=== PATIENT | female | born 1965 | race Caucasian/White ===

== ENCOUNTER 2018-08-19 21:59 | Inpatient (IN) ==
[2018-08-19] MEDS ORDERED: DUONEB (A & A) INH ONE (22:08)
[2018-08-19] MEDS ORDERED: PREDNISONE PO ONE (22:08)
[2018-08-19 22:19] LABS: BASO# 0.03 X1000 (0.0-0.2); BASO% 0.4 % (0.0-0.8); EOS# 0.19 X1000 (0.0-0.7); EOS% 2.2 % (0.0-10.0); HEMATOCRIT 38.2 % (37.0-47.0); HEMOGLOBIN 13.5 g/dL (12.0-16.0); IMM GRAN# 0.01 X1000 (0.0-0.04); IMM GRAN% 0.1 % (0.0-0.5); LYMPH# 3.87 X1000 (1.2-3.4); LYMPH% 45.4 % (20.5-51.1); MCH 28.4 PG (27-31); MCHC 35.3 g/dL (33-37); MCV 80.4 FL (81-99); MONO# 0.74 X1000 (0.11-0.59); MONO% 8.7 % (1.7-9.3); MPV 9.3 FL (7.4-10.4); NEUT# 3.68 X1000 (1.4-6.5); NEUT% 43.2 % (42.2-75.2); PLT 280 X1000 (130-400); RBC 4.75 XMIL (4.2-5.4); RDW 12.6 % (11.5-14.5); WBC 8.52 X1000 (4.8-10.8)
[2018-08-19 22:41] LABS: AGAP 16; BUN 10 mg/dL (8-22); CHLORIDE 98 mmol/L (98-107); COSMO 275; CREATININE 0.8 mg/dL (0.5-0.9); ESTIMATED GFR > 60; GLUCOSE 111 mg/dL (70-104); POTASSIUM 3.3 mmol/L (3.5-5.1); SODIUM 138 mmol/L (136-145); TCO2 24 mmol/L (25-35)
[2018-08-19] MEDS ORDERED: ALBUTEROL NEB INH ONE (23:02)
[2018-08-19] MEDS ORDERED: NITROGLYCERIN TOP ONE (23:05)
[2018-08-19] MEDS ORDERED: MORPHINE IV ONE (23:05)
[2018-08-19] MEDS ORDERED: MORPHINE IV PRN (23:41)
[2018-08-19] MEDS ORDERED: ZOFRAN IV PRN (23:41)
--- NOTE | 2018-08-19 23:41 | PROVIDER DOCUMENTATION ---
This chart was entered by Rebecca Barnard Scribe, acting as scribe for China Zendejas MD. HPI-Chest Pain - General Chief Complaint: Chest Pain Stated Complaint: CHEST PAIN AND SOB Time Seen by Provider: 08/19/18 22:05 Source: patient Allergies/Adverse Reactions: Patient Allergies Allergy/AdvReac Type Severity Reaction Status Date / Time aspirin Allergy Severe FACIAL Verified 07/06/18 16:11 [From Aspirin Regimen SWELLING Phil/Calcium] adhesive Allergy Mild RASH Verified 07/06/18 16:11 latex Allergy Mild RASH Verified 07/06/18 16:11 Penicillins Allergy Mild RASH Verified 07/06/18 16:11 sertraline HCl * Allergy Mild SWELLING Verified 07/06/18 16:11 [From Zoloft] bee venom protein (honey bee) Allergy SWELLING Verified 07/06/18 16:11 tomato Allergy HIVES Verified 07/06/18 16:11 haloperidol [From Haldol] AdvReac Unknown Verified 07/06/18 16:11 tramadol AdvReac Unknown Verified 07/06/18 16:11 Home Medications: Home Medication List Medication Instructions Recorded Confirmed Last Taken Type Lisinopril 20 mg PO DAILY 12/27/17 07/06/18 05/27/18 09:00 History 10mg Pantoprazole [Protonix] 40 mg PO DAILY@0700 05/27/18 07/06/18 05/27/18 07:00 History Duloxetine [Cymbalta] 1 tab PO DAILY 30 Days #30 cap 06/01/18 07/06/18 Unknown Rx Paliperidone [Paliperidone ER] 6 mg PO HS 30 Days #30 tab.er.24 06/01/18 07/06/18 Unknown Rx Trazodone [Desyrel] 100 mg PO HS 30 Days #30 tab 06/01/18 07/06/18 Unknown Rx Docusate Sodium [Colace] 100 mg PO DAILY #30 cap 07/06/18 Unknown Rx Fluticasone Propionate 2 puff INTRANASAL DAILY 07/06/18 07/06/18 Unknown History Magnesium Citrate [Citrate of 300 ml PO ONCE #1 bottle 07/06/18 Unknown Rx Magnesia] Naproxen 1 tab PO DAILY 07/06/18 07/06/18 Unknown History Loperamide [Imodium] 2 mg PO PRN PRN #20 cap MDD 6 07/26/18 Unknown Rx capsules Ondansetron Odt [Zofran 4 mg Odt] 4 mg PO Q6H PRN PRN #15 tab 07/26/18 Unknown Rx - History of Present Illness-CP Nature of Presenting Problem: 53 yof c/o pt 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 pt given 0.8 nitro w/no relief. pt sts she was walking around at [employer] and outdoors when sym started. pt sts walking more than usual tonight. pt has hx of htn, hyperglycemia and copd. pt is out of copd rx for 3 months. Review of Systems - Adult - REVIEW OF SYSTEMS - ADULT Constitutional: reports: no symptoms reported Eyes: reports: no symptoms reported Ears, Nose, Mouth & Throat: reports: no symptoms reported Cardiovascular: reports: see HPI, chest pain. denies: heart murmur, poor circulation, syncope Respiratory: reports: see HPI, shortness of breath. denies: cough, hemoptysis, pleurisy Gastrointestinal: reports: no symptoms reported Genitourinary: reports: no symptoms reported Musculoskeletal: reports: no symptoms reported Integumentary: reports: no symptoms reported Neurological: reports: no symptoms reported Psychiatric: reports: no symptoms reported Endocrine: reports: no symptoms reported Hematologic/Lymphatic: reports: no symptoms reported Allergic/Immunologic: reports: no symptoms reported All Other Systems: Reviewed and Negative Past History - Adult - PAST MEDICAL HISTORY-ADULT Review of Records: reports: Old Records Reviewed, Nursing Assessment Review, Medications Reviewed, Social history reviewed & non-contributory. Major Childhood Illnesses: reports: denies history Cardiovascular: reports: CHF, HTN, hyperlipidemia Respiratory: reports: asthma, COPD Gastrointestinal: reports: GERD Obstetrical/Gynecological: reports: uterine/ovarian cancer Genitourinary: reports: denies history Musculoskeletal: reports: intervertebral disc disease Neurological: reports: denies history Psychiatric: reports: bipolar, depression, psychiatric problems, schizophrenia Endocrine/Immune: reports: Diabetes Other Conditions: reports: denies history - PRIOR SURGERIES/PROCEDURES Surgical/Procedure History: reports: appendectomy, colonoscopy, hysterectomy, BTL, , bowel surgery, orthopedic (extremity), other - PRIOR HOSPITALIZATIONS Prior Hospitalizations: reports: none - IMMUNIZATION STATUS Childhood Immunizations: See Nurse Assessment Flu Vaccine: See Nurse Assessment - FAMILY HISTORY Family History: reviewed, not pertinent - SOCIAL HISTORY Smoking: cigarettes, chew, greater than 1 pack/day Provider spent 3-5 mins advising pt. on dangers of tobacco.: Discussed manners to quit use, and f/u contacts for add'l counseling. Substance Use: none/never Physical Exam-General - PHYSICAL EXAM-ADULT Initial Vital Signs Reviewed: Yes - CONSTITUTIONAL General Appearance: alert, moderate distress. negative: cachetic, obtunded, combative - EYES Eyes: PERRL/EOMI, pink conjunctivae - HEAD, EARS, NOSE, MOUTH & THROAT HENMT: normocephalic/atraumatic, moist mucous membranes, normal ENT inspection - NECK Neck: non-tender, full range of motion, supple, normal inspection - RESPIRATORY Respiratory: chest non-tender, normal breath sounds, no pleuratic chest pain, no respiratory distress, no accessory muscle use, wheezing (bilat). negative: lungs clear, crackles, rales - CARDIOVASCULAR Cardiovascular: normal peripheral pulses, regular rate, rhythm, no edema, no JVD - GASTROINTESTINAL (ABDOMEN) Abdominal Exam: normal bowel sounds, non tender, soft - LYMPHATIC Lymphatic: no adenopathy - MUSCULOSKELETAL Back Exam: normal inspection, no CVA tenderness, no vertebral tenderness Extremity: normal range of motion, non-tender, normal inspection Peripheral Pulses: radial (R): 2+, radial (L): 2+ - SKIN Integumentary: normal color, normal turgor, warm/dry - NEUROLOGIC Neurologic: grossly normal, no motor/sensory deficits - PSYCHIATRIC Psych/Mental Status: normal mood/affect, normal thought content, normal thought process, oriented x 3 - HEART Score HEART Score: History: Moderately Suspicious HEART Score: ECG: Non-Specific Repolarization Disturbance/LBBB/PM HEART Score: Age: 45-65 Years HEART Score: Risk Factors for Atherosclerotic Disease: 1 or 2 Risk Factors HEART Score: Troponin: < or = Normal Limit Total HEART Score:: 4 Progress - PLAN OF CARE/RESULTS Progress/Plan/Lab Results: Vital Signs - 8 hr 08/19/18 22:01 08/19/18 22:10 08/19/18 22:17 Temperature 98.3 F Pulse Rate 88 88 Respiratory Rate 24 24 Blood Pressure 116/54 O2 Sat by Pulse Oximetry 85 L 92 L 08/19/18 23:08 08/19/18 23:14 Temperature Pulse Rate 60 60 Respiratory Rate 14 14 Blood Pressure 122/57 O2 Sat by Pulse Oximetry 95 Laboratory Results - last 24 hr 08/19/18 08/19/18 08/19/18 22:11 22:11 22:11 WBC 8.52 RBC 4.75 Hgb 13.5 Hct 38.2 MCV 80.4 L MCH 28.4 MCHC 35.3 RDW Std Deviation 12.6 Plt Count 280 MPV 9.3 Immature Gran % (Auto) 0.1 Neut % (Auto) 43.2 Lymph % (Auto) 45.4 [place] % (Auto) 8.7 Eos % (Auto) 2.2 Baso % (Auto) 0.4 Immature Gran # (Auto) 0.01 Neut # (Auto) 3.68 Lymph # (Auto) 3.87 H [place] # (Auto) 0.74 H Eos # (Auto) 0.19 Baso # (Auto) 0.03 Sodium 138 Potassium 3.3 L Chloride 98 Carbon Dioxide 24 L Anion Gap 16 BUN 10 Creatinine 0.8 Estimated GFR/1.73 m2 > 60 BUN/Creatinine Ratio 13 Glucose 111 H Calculated Osmolality 275 Calcium 9.0 Troponin T < 0.010 Ack-L-Ahpmmtalaie Pept 08/19/18 22:11 WBC RBC Hgb Hct MCV MCH MCHC RDW Std Deviation Plt Count MPV Immature Gran % (Auto) Neut % (Auto) Lymph % (Auto) [place] % (Auto) Eos % (Auto) Baso % (Auto) Immature Gran # (Auto) Neut # (Auto) Lymph # (Auto) [place] # (Auto) Eos # (Auto) Baso # (Auto) Sodium Potassium Chloride Carbon Dioxide Anion Gap BUN Creatinine Estimated GFR/1.73 m2 BUN/Creatinine Ratio Glucose Calculated Osmolality Calcium Troponin T [id number]-A-[id number] Pept 16 Orders Category Date Time Status IV Insertion ORDERED Care 08/19/18 22:08 Active CHEST-1 VIEW [RAD] Stat Exams 08/19/18 22:08 Taken BASIC METABOLIC PANEL [CHEM] Stat Lab 08/19/18 22:11 Completed CBC WITH DIFF [HEME] Stat Lab 08/19/18 22:11 Completed PRO B-NATRIURETIC PEPTIDE Stat Lab 08/19/18 22:11 Completed TROPONIN T Stat Lab 08/19/18 22:11 Completed Albuterol 2.5MG/Ipratrop 0.5MG [Duoneb (A & A)] Med 08/19/18 22:08 Discontinued 6 ml INH NOW ONE Albuterol [Albuterol Neb] Med 08/19/18 23:02 Discontinued 10 mg INH NOW ONE Morphine Med 08/19/18 23:05 Discontinued 2 mg IV NOW ONE Nitroglycerin Med 08/19/18 23:05 Discontinued 1 inch TOP NOW ONE Prednisone Med 08/19/18 22:08 Discontinued 60 mg PO NOW ONE Aerosol Treatments Routine Oth 08/19/18 22:08 Active Aerosol Treatments Routine Oth 08/19/18 23:02 Active Aerosol Treatments Stat Oth 08/19/18 22:08 Active Aerosol Treatments Stat Ot 08/19/18 23:02 Active chest pain and dyspnea. Will treat and will further evaluate for causes including but not limited to acs, copd exacerbation, pna, arrythmia Result Diagrams: 08/19/18 22:11 08/19/18 22:11 - REASSESSMENT Reassessment #1 Status: other (contniued wheezing but improving. chest pain improved, inital troponin negative but with slight st depressions concenring for ACS. Will admit for further evaluation and treatment. Discussed case with Dr. Kyle, hospitalist, who ask that pt be admitted and will see pt.) - EKG 1 Time of EKG reading by physician:: 22:03 EKG Read and Signed by:: China Zendejas EKG Interpretation (*Must complete 3 of following elements*): Abnormal (Sinus Rhythm, rate 88, slight ST depressions anteirorly in V3, V4, new as compared to last ekg 05/27/18) Departure - Departure Date of Disposition Decision: 08/19/18 Time of Disposition Decision: 23:40 DIAGNOSIS: COPD exacerbation Chest pain Qualifiers: Chest pain type: unspecified Qualified Code(s): R07.9 - Chest pain, unspecified Disposition: ADMITTED INPATIENT 09 Certified Medical Emergency: Emergent Condition: Fair - Critical Care Note This patient required my direct & personal management of CC.: No Attestation - Physician/ PALMER Attestation Patient care was provided by Advanced Practice Provider:: No The physician spent face to face time with patient:: Yes Advanced Practice Provider documentation review:: Supervising physician onsite and consulted in the evaluation and care of this patient. The physician did have a face to face encounter with the patient. This chart was documented by the indicated scribe, (Rebecca Barnard, Julia) and accurately reflects the services I performed and decisions made by me, China Zendejas MD, as attested by the provider's signature.
--- NOTE | 2018-08-20 05:44 | Diag Imaging Result Doc PS360 ---
EXAM: CHEST-1 VIEW HISTORY: dyspnea TECHNIQUE: Chest single view COMPARISON: 07/06/2018 FINDINGS: The lungs are well expanded. The heart is not enlarged. The vessels are not distended. There are no infiltrates. No effusion identified. IMPRESSION: Negative exam. Electronically signed by Cristian Olmos 08/20/2018 5:41 AM
[2018-08-20] MEDS: DUONEB (A & A) INH SCH ×5 (07:45→23:34)
--- NOTE | 2018-08-20 08:42 | EKG Report ---
Test Performed on : 08/19/2018 10:03:58 PM Test Reason : ER Blood Pressure : / mmHG Vent. Rate : 088 BPM Atrial Rate : 088 BPM P-R Int : 154 ms QRS Dur : 104 ms QT Int : 410 ms P-R-T Axes : 042 074 -16 degrees QTc Int : 496 ms Normal sinus rhythm. Cannot rule out Inferior infarct , age undetermined ST & T wave abnormality, consider anterior ischemia Abnormal ECG When compared with ECG of 27-MAY-2018 14:45, (Unconfirmed) Non-specific change in ST segment in Inferior leads T wave inversion now evident in Inferior leads T wave inversion now evident in Anterior leads Unconfirmed Result
[2018-08-20] MEDS ORDERED: KLOR-CON PO ONE (09:05)
[2018-08-20] MEDS ORDERED: TYLENOL PO PRN (11:09)
[2018-08-20] MEDS: NITROGLYCERIN TOP SCH ×3 (11:45→23:29)
--- NOTE | 2018-08-20 12:19 | EKG Report ---
Test Performed on : 08/20/2018 12:13:33 PM Test Reason : follow up Blood Pressure : / mmHG Vent. Rate : 069 BPM Atrial Rate : 069 BPM P-R Int : 170 ms QRS Dur : 102 ms QT Int : 424 ms P-R-T Axes : 059 051 034 degrees QTc Int : 454 ms Normal sinus rhythm. Nonspecific ST and T wave abnormality Abnormal ECG When compared with ECG of 19-AUG-2018 22:03, (Unconfirmed) T wave inversion no longer evident in Inferior leads Confirmed by Ben Wilkins MD ([id number]) on 08/23/2018 10:21:08 AM
--- NOTE | 2018-08-20 12:58 | HISTORY AND PHYSICAL ---
PRIMARY CARE PROVIDER: None. CHIEF COMPLAINT: Chest pain. HISTORY OF PRESENT ILLNESS: Ms. Cha is a 53-year-old female, who carries a past medical history of COPD, GERD, hiatal hernia, gout, uterine cancer, paranoid schizophrenic, borderline personality disorder, depression, hypertension. She reports yesterday she had been walking around all downtown. She had been to a coffee shop, went back to her residence, picked up per boyfriend, and they were walking to another store. This is when she started experiencing a stabbing pain in her chest. It did not radiate anywhere. She was short of breath. She states it was different from her regular COPD short of breath. Nothing eased the pain or made it better. She did become diaphoretic. She did not feel any palpitations. There was no nausea, vomiting or dizziness associated. She reports nothing really relieved her pain, not even nitroglycerin or morphine. Then the pain was 10 out of 10. She now rates the pain 9 out of 10. She does have 2 sets of negative enzymes. However, she is a 4 to 5 pack per day smoker. She home rolls her own cigarettes. We will continue her on her PPI. She does have a history of GERD and hiatal hernia, and we will set her up for a stress test in the a.m. PAST MEDICAL HISTORY: 1. Hypertension. 2. COPD. 3. Gastroesophageal reflux disease. 4. Hiatal hernia. 5. Gout. 6. Uterine cancer. 7. Paranoid schizophrenia. 8. Borderline personality disorder. 9. Depression. PAST SURGICAL HISTORY: 1. Esophageal dilatation. 2. . 3. Hysterectomy. 4. Bilateral tubal ligation. 5. Cholecystectomy. 6. Bilateral carpal tunnel repair. 7. Benign tumor removed from upper back. SOCIAL HISTORY: She is a 4 to 5 pack per day smoker with home rolled cigarettes. She denies any alcohol or illicit drug use. She lives with her sister. She has a boyfriend. FAMILY HISTORY: Does not believe any coronary artery disease. She does have an extensive family history of psych issues with aunt and uncle both committing suicide, as well as a sister and a nephew and a niece with mental illness. REVIEW OF SYSTEMS: A 14 point Review of Systems completely negative, except for those mentioned in HPI. ALLERGIES: To aspirin, adhesive tape, latex, penicillin, Zoloft, bee venom, tomatoes, Haldol, tramadol. HOME MEDICATIONS: 1. Duloxetine 60 mg p.o. daily. 2. Lisinopril 20 mg p.o. daily. 3. Protonix 40 mg p.o. daily. 4. Desyrel 100 mg p.o. at bedtime. 5. Paliperidone ER 6 mg p.o. at bedtime. PHYSICAL EXAMINATION: VITAL SIGNS: Temperature is 97.8 degrees, heart rate 50, respiratory rate is 18, blood pressure is 92/55, recheck manually is 120/60. O2 is 99% on 3 L nasal cannula. GENERAL: Ms. Cha is a pleasant, 53-year-old female, who is lying in the bed in no acute distress. HEENT: Atraumatic, normocephalic. PERRL. NECK: Supple. Trachea midline. CARDIOVASCULAR: S1, S2 appreciated. No murmurs, gallops, rubs noted. RESPIRATORY: Lung sounds clear bilaterally. Did not appreciate any wheezes. However, patient did complain of wheezes yesterday. GI: Soft, nontender, nondistended. Positive bowel sounds 4 quadrants. EXTREMITIES: Negative for edema. No signs of clubbing or cyanosis. NEUROLOGIC: Patient is awake, alert. No focal deficits noted. DIAGNOSTIC DATA: Chest x-ray was a negative exam. First EKG showed normal sinus rhythm with ST and T-wave abnormality when compared to an EKG on the may with some T-wave inversion in inferior and anterior leads. LABORATORY DATA: Two sets of negative cardiac enzymes. ProBNP was 16. Potassium was 3.3. CBC was unremarkable. ASSESSMENT AND PLAN: 1. Chest pain, rule out. The patient is still complaining of stabbing chest pain. We will continue with topical nitroglycerin, as-needed morphine. We will make her nothing by mouth after midnight and set her up for a stress test in the morning. Trend 1 more set of troponin. Check a lipid profile. Patient does have an allergy to aspirin. We will also get an echocardiogram. 2. Chronic obstructive pulmonary disease. She does not appear to be in exacerbation. However, she was given several breathing treatments upon admission to the Emergency Department last night, and was given a dose of prednisone. She may have had a mild chronic obstructive pulmonary disease exacerbation as she is a 4 to 5 pack per day smoker. We will continue on bronchodilators and supplemental oxygen. 3. Hypertension. Continue her Prinivil. 4. Hiatal hernia and gastroesophageal reflux disease. We will continue with her proton pump inhibitor. 5. Paranoid schizophrenia, borderline personality disorder and depression, aware. We will continue home medications. Further recommendation to follow physician evaluation, laboratory and diagnostic data. Dictated by MARTIR Pastor for Bhupinder Kyle MD cc: Bhupinder Kyle MD
[2018-08-20 13:29] LABS: AGAP 15; ALBUMIN 4.4 g/dL (3.5-5.0); ALKALINE PHOSPHATASE 64 U/L (32-104); BUN 11 mg/dL (8-22); CALCIUM 9.5 mg/dL (8.8-10.2); CHLORIDE 100 mmol/L (98-107); COSMO 288; CREATININE 0.7 mg/dL (0.5-0.9); ESTIMATED GFR > 60; GLUCOSE 204 mg/dL (70-104); GOT 13 U/L (10-30); GPT 19 U/L (10-36); POTASSIUM 3.9 mmol/L (3.5-5.1); SODIUM 142 mmol/L (136-145); TCO2 27 mmol/L (25-35); TOTAL PROTEIN 7.4 g/dL (6.3-8.3)
--- NOTE | 2018-08-20 14:38 | HISTORY AND PHYSICAL ---
Patient seen and examined by myself. Full note dictated. Discussed with nurse practitioner. The patient presented to the hospital with chest wall pain when she takes a deep breath and moves, as well as increased work of breathing, shortness of breath. Currently notes that the chest pain is better. States she is still having some shortness of breath. We will admit her to the hospital, treat her for asthma exacerbation, and follow. cc: Bhupinder Kyle MD
[2018-08-20] MEDS ORDERED: DESYREL PO SCH (21:00)
[2018-08-20] MEDS ORDERED: INVEGA PO SCH (21:00)
[2018-08-21] MEDS ORDERED: NS 1,000 ML IV SCH (00:01)
[2018-08-21 05:37] VITALS: BP 155/89
[2018-08-21] MEDS: NITROGLYCERIN TOP SCH ×2 (05:39→10:33)
[2018-08-21 06:29] LABS: BASO% 0.2 % (0.0-0.8); EOS% 1.3 % (0.0-10.0); HEMOGLOBIN 13.3 g/dL (12.0-16.0); IMM GRAN% 0.2 % (0.0-0.5); LYMPH# 3.02 X1000 (1.2-3.4); LYMPH% 28.6 % (20.5-51.1); MCH 27.9 PG (27-31); MCHC 33.3 g/dL (33-37); MCV 83.9 FL (81-99); MONO% 7.2 % (1.7-9.3); MPV 9.2 FL (7.4-10.4); NEUT% 62.5 % (42.2-75.2); PLT 295 X1000 (130-400); RBC 4.77 XMIL (4.2-5.4); RDW 12.9 % (11.5-14.5); WBC 10.56 X1000 (4.8-10.8)
[2018-08-21 06:30] LABS: BASO# 0.02 X1000 (0.0-0.2); EOS# 0.14 X1000 (0.0-0.7); IMM GRAN# 0.02 X1000 (0.0-0.04); MONO# 0.76 X1000 (0.11-0.59)
[2018-08-21] MEDS ORDERED: PRILOSEC PO SCH (07:00)
[2018-08-21 07:08] LABS: CHOLESTEROL 133 mg/dL (0-200); HDL 62 mg/dL (45-65); LDL 55 mg/dL; TRIGLYCERIDES 80 mg/dL (35-135); VLDL 16 mg/dL
--- NOTE | 2018-08-21 07:26 | Diag Imaging Result Doc PS360 ---
EXAM: CHEST-PORTABLE - 08/21/2018 HISTORY: Chest Pain TECHNIQUE: Portable chest COMPARISON: 08/19/2018 FINDINGS: Heart size is normal. There are a few tiny granulomas from old granulomatous disease. The lungs otherwise appear clear. There is no pleural effusion or pneumothorax identified. IMPRESSION: No evidence of acute disease. Electronically signed by Nicola Maldonado 08/21/2018 7:24 AM
[2018-08-21] MEDS: DUONEB (A & A) INH SCH ×2 (07:52→11:54)
--- NOTE | 2018-08-21 07:54 | ECHO REPORT ---
ORDER DATE: 08/20/2018 MEASUREMENTS: 1. Septal thickness 1.1. 2. Left ventricular internal diameter diastole 5.3. 3. Wall thickness 1.0. 4. Left ventricular internal diameter in systole 3.5. 5. Aortic root 3.3. 6. Left atrium 3.5 SUMMARY: 1. Adequate quality study. 2. Aortic valve is trileaflet and opens normally on 2 dimensional images. Mitral, tricuspid, and pulmonic valves are without evidence of structural abnormality. Aortic root is normal in size. 3. Normal left ventricular dimensions demonstrated. Estimated left ventricular ejection fraction appears to be at least 60%. No regional wall motion abnormalities are evident. Left atrium, right atrium, right ventricle are normal in size with normal right ventricular systolic function. 4. No pericardial effusion. 5. Inferior vena cava not well demonstrated. CONCLUSIONS: 1. No significant valvular abnormality. 2. Normal left ventricular systolic function without wall motion abnormality evident. cc: Rolando Rodriguez MD
[2018-08-21] MEDS ORDERED: CYMBALTA PO SCH (09:00)
[2018-08-21] MEDS ORDERED: PRINIVIL PO SCH (09:00)
[2018-08-21] MEDS ORDERED: LEXISCAN ONE (12:00)
[2018-08-21] MEDS ORDERED: AMINOPHYLLINE ONE (12:00)
--- NOTE | 2018-08-21 14:29 | Diag Imaging Result Document ---
PROCEDURE NAME: MYOCARDIAL PERF SCAN, STR/REST - 08/20/2018 LEXISCAN CARDIOLITE STRESS TEST: Lexiscan was infused per standard protocol. The patient had left-sided sharp chest pain. Aminophylline was given. Stress electrocardiogram revealed T-wave inversions were noted in the inferior leads with [address] depression in the lateral leads. Cardiolite was injected. 14.9 mCi of Cardiolite was injected for the rest phase. 43.6 mCi of Cardiolite was injected for the stress phase. Images revealed significant diaphragmatic and chest wall attenuation. There is better tracer uptake on the stress compared to rest. There is no definite evidence of ischemia. There is low-grade fixed defect in the left ventricular apex. Left ventricular end-diastolic volume was 146 mm, mildly dilated. Left ventricular ejection fraction by gated SPECT was 71%. There is no definite evidence of ischemia. This could represent attenuation defect. CONCLUSIONS: 1. The patient had sharp chest pain. 2. A [address] depression noted on the lateral leads. 3. There was no evidence of ischemia on the myocardial perfusion scans. There is low-grade fixed defect in the left ventricular apex associated with significant chest wall attenuation. This could represent attenuation defect. Low probability of scar. Left ventricular ejection fraction by gated SPECT was 71%. cc: Ty Stock MD
== END 2018-08-21 15:27 | disposition home or self-care (01) | DRG 191 ==
LOC: P.ED 21:59 → P.MEDSURG 23:53
PROVIDERS: ATTEND Family Medicine
CPT/HCPCS: 71010; 71045; 78452; 80048; 80053; 80061; 83880; 84484; 85025; 93005; 93010; 93017; 93306; 94640; 94761; A9270; A9500; J0280; J0820; J2270; J2785; J7030; J7506; J7512

== ENCOUNTER 2019-04-24 18:02 | Inpatient (IN) ==
[2019-04-24 18:25] LABS: BASO# 0.02 X1000 (0.0-0.2); BASO% 0.2 % (0.0-0.8); EOS# 0.08 X1000 (0.0-0.7); EOS% 0.8 % (0.0-10.0); HEMATOCRIT 42.1 % (37.0-47.0); HEMOGLOBIN 14.3 g/dL (12.0-16.0); IMM GRAN# 0.03 X1000 (0.0-0.04); IMM GRAN% 0.3 % (0.0-0.5); LYMPH# 3.69 X1000 (1.2-3.4); LYMPH% 36.2 % (20.5-51.1); MCV 85.4 FL (81-99); MONO# 0.86 X1000 (0.11-0.59); MONO% 8.4 % (1.7-9.3); NEUT# 5.51 X1000 (1.4-6.5); NEUT% 54.1 % (42.2-75.2); PLT 369 X1000 (130-400); RBC 4.93 XMIL (4.2-5.4); WBC 10.19 X1000 (4.8-10.8)
[2019-04-24 18:37] LABS: INR 0.97; PROTIME 13.4 Seconds (11.0-16.0)
[2019-04-24 18:38] LABS: PTT 25.6 Seconds (22.3-41.8)
[2019-04-24 18:53] LABS: AGAP 12; ALBUMIN 4.9 g/dL (3.5-5.0); ALKALINE PHOSPHATASE 64 U/L (32-104); BUN 15 mg/dL (8-22); CALCIUM 9.4 mg/dL (8.8-10.2); CHLORIDE 101 mmol/L (98-107); CK PROFILE 82 U/L (24-173); COSMO 287; CREATININE 0.7 mg/dL (0.5-0.9); ESTIMATED GFR > 60; GLUCOSE 119 mg/dL (70-104); GOT 13 U/L (10-30); GPT 16 U/L (10-36); POTASSIUM 3.8 mmol/L (3.5-5.1); SODIUM 143 mmol/L (136-145); TCO2 30 mmol/L (25-35); TOTAL PROTEIN 7.5 g/dL (6.3-8.3)
--- NOTE | 2019-04-24 18:55 | Diag Imaging Result Doc PS360 ---
EXAM: CHEST-2 VIEWS HISTORY: CP TECHNIQUE: Two views COMPARISON: 03/03/2019 FINDINGS: The lungs are well expanded. The heart is not enlarged. The vessels are not distended. There are no infiltrates. No pleural effusions. Scattered granuloma. IMPRESSION: No acute abnormality. Electronically signed by Cristian Olmos 04/24/2019 6:52 PM
[2019-04-24] MEDS ORDERED: DUONEB (A & A) INH ONE (21:54)
[2019-04-24] MEDS ORDERED: SOLU-MEDROL IV ONE (21:54)
[2019-04-24 22:18] LABS: BE 7.1 mmoll (-3.0-3.0); BLOOD TYPE ARTERIAL; HCO3-(ACT) 30.3 mmoll (20.0-26.0); METHB 0.8 % (0.0-1.5); O2(CT) 18.6 mL/dL (15.0-23.0); O2HB 91.8 % (95.0-99.0); PCO2(98.6) 45 mmHg (35-45); PO2(98.6) 181 mmHg (60-100); SAMPLE BLOOD; SAO2 98.2 % (95.0-100.0); THB 14.1 g/dL (11.5-17.4)
[2019-04-24 22:22] LABS: ALLEN TEST YES; MODALITY ROOM AIR; pH(98.6) 7.46 (7.35-7.45)
--- NOTE | 2019-04-24 23:44 | PROVIDER DOCUMENTATION ---
This chart was entered by Alberto Ulrich Scribe, acting as scribe for Nilam Holbrook CRNP. HPI-Chest Pain - General Chief Complaint: Chest Pain Stated Complaint: CHEST PAIN Time Seen by Provider: 04/24/19 18:15 Source: patient Allergies/Adverse Reactions: Patient Allergies Allergy/AdvReac Type Severity Reaction Status Date / Time aspirin Allergy Severe FACIAL Verified 04/24/19 18:24 [From Aspirin Regimen SWELLING Phil/Calcium] adhesive Allergy Mild RASH Verified 04/24/19 18:24 latex Allergy Mild RASH Verified 04/24/19 18:24 Penicillins Allergy Mild RASH Verified 04/24/19 18:24 sertraline HCl * Allergy Mild SWELLING Verified 04/24/19 18:24 [From Zoloft] bee venom protein (honey bee) Allergy SWELLING Verified 04/24/19 18:24 tomato Allergy HIVES Verified 04/24/19 18:24 haloperidol [From Haldol] AdvReac Unknown Verified 04/24/19 18:24 tramadol AdvReac Unknown Verified 04/24/19 18:24 trazodone AdvReac Unknown Verified 04/24/19 18:24 Home Medications: Home Medication List Medication Instructions Recorded Confirmed Last Taken Type LISINOpril [Prinivil] 20 mg PO DAILY 02/25/19 04/24/19 Unknown History Omeprazole 40 mg PO DAILY 02/26/19 04/24/19 Unknown History Cariprazine HCl [Vraylar] 4.5 mg PO DAILY 30 Days #90 cap 03/05/19 04/24/19 Unknown Rx Ergocalciferol (Vitamin D2) 50,000 unit PO Q7D #7 cap 03/05/19 04/24/19 Unknown Rx [Vitamin D] Fluoxetine [Prozac] 40 mg PO QAM 30 Days #60 cap 03/05/19 04/24/19 Unknown Rx Methocarbamol [Robaxin] 750 mg PO TID 30 Days #135 tab 03/05/19 04/24/19 Unknown Rx Prazosin [Minipress] 1 mg PO QHS 30 Days #30 cap 03/05/19 04/24/19 Unknown Rx - History of Present Illness-CP Nature of Presenting Problem: Pt is a 53 y/o F presents to the ED with chest pain that began today at 4pm 2 hours prior to arrival. She report sharp mid sternum pain that radiates to her right under her breast. She says she has some SOB, Nausea and got sweaty. Pt reports her cough is productive with brown sputum and says she smokes 5 packs a day that she rolls her self. Location: reports: central Chest Pain Radiation: reports: other (right breast) Quality of Pain: reports: sharp Severity in ED: moderate, severe Onset/Duration: 1-3 hours ago Timing: still present Context/Activities at Onset: reports: none Modifying Factors: improves with: nothing (Reports taking tylenol when the pain began) Associated Symptoms: reports: diaphoresis, nausea, shortness of breath Nitro Today/Relief: no nitro taken today Aspirin Treatment Today: no aspirin today (allergy to aspirin) Prior Chest Pain/Cardiac Workup: reports: no prior chest pain, no prior cardiac workup Similar Symptoms Previously?: No Recently Seen Here or By Another Healthcare Provider: No Review of Systems - Adult - REVIEW OF SYSTEMS - ADULT Constitutional: denies: chills, fever Eyes: reports: no symptoms reported Ears, Nose, Mouth & Throat: reports: no symptoms reported Cardiovascular: reports: chest pain. denies: edema, orthopnea Respiratory: reports: cough, shortness of breath. denies: wheezing Gastrointestinal: reports: nausea. denies: abdominal pain, vomiting Genitourinary: reports: no symptoms reported Musculoskeletal: denies: back pain, neck pain Integumentary: reports: no symptoms reported Neurological: reports: no symptoms reported Psychiatric: reports: no symptoms reported Endocrine: reports: no symptoms reported Hematologic/Lymphatic: reports: no symptoms reported Allergic/Immunologic: reports: no symptoms reported All Other Systems: Reviewed and Negative Past History - Adult - PAST MEDICAL HISTORY-ADULT Review of Records: reports: Old Records Reviewed, Nursing Assessment Review, Medications Reviewed Major Childhood Illnesses: reports: denies history Cardiovascular: reports: CHF, HTN, hyperlipidemia Respiratory: reports: asthma, COPD Gastrointestinal: reports: GERD Obstetrical/Gynecological: reports: uterine/ovarian cancer Genitourinary: reports: denies history Musculoskeletal: reports: intervertebral disc disease Neurological: reports: denies history Psychiatric: reports: bipolar, depression, psychiatric problems, schizophrenia Endocrine/Immune: reports: Diabetes Other Conditions: reports: denies history - PRIOR SURGERIES/PROCEDURES Surgical/Procedure History: reports: appendectomy, colonoscopy, hysterectomy, BTL, , bowel surgery, orthopedic (extremity), other - PRIOR HOSPITALIZATIONS Prior Hospitalizations: reports: none - IMMUNIZATION STATUS Childhood Immunizations: See Nurse Assessment Flu Vaccine: See Nurse Assessment - FAMILY HISTORY Family History: reviewed, not pertinent - SOCIAL HISTORY Smoking: greater than 1 pack/day Living Situation: family Physical Exam-General - PHYSICAL EXAM-ADULT Initial Vital Signs Reviewed: Yes - CONSTITUTIONAL General Appearance: alert, no apparent distress - EYES Eyes: PERRL/EOMI, pink conjunctivae - HEAD, EARS, NOSE, MOUTH & THROAT HENMT: moist mucous membranes, normal ENT inspection, pharynx normal. negative: angioedema - NECK Neck: non-tender, full range of motion, supple, normal inspection - RESPIRATORY Respiratory: no pleuratic chest pain, no respiratory distress, no accessory muscle use. negative: chest non-tender (mid sternum tenderness to palpation, tenderness to right chest wall under breast) - CARDIOVASCULAR Cardiovascular: normal peripheral pulses, regular rate, rhythm, no edema - GASTROINTESTINAL (ABDOMEN) Abdominal Exam: normal bowel sounds, non tender, soft - MUSCULOSKELETAL Back Exam: no CVA tenderness, no vertebral tenderness Extremity: normal range of motion, non-tender, normal gait, normal inspection - SKIN Integumentary: normal color, normal turgor, warm/dry - NEUROLOGIC Neurologic: grossly normal, no motor/sensory deficits - PSYCHIATRIC Psych/Mental Status: normal mood/affect, normal thought content, normal thought process, oriented x 3 - HEART Score HEART Score: History: Moderately Suspicious HEART Score: ECG: Normal HEART Score: Age: 45-65 Years HEART Score: Risk Factors for Atherosclerotic Disease: 1 or 2 Risk Factors HEART Score: Troponin: < or = Normal Limit Total HEART Score:: 3 Progress - PLAN OF CARE/RESULTS Progress/Plan/Lab Results: Vital Signs - 8 hr 04/24/19 18:06 04/24/19 19:42 04/24/19 21:21 Temperature 97.6 F 98.2 F Pulse Rate 79 64 60 Respiratory Rate 20 16 17 Blood Pressure 155/108 158/65 142/85 O2 Sat by Pulse Oximetry 93 L 93 L 97 04/24/19 22:06 Temperature Pulse Rate 59 L Respiratory Rate 16 Blood Pressure O2 Sat by Pulse Oximetry 99 Laboratory Results - last 24 hr 04/24/19 04/24/19 04/24/19 18:17 18:17 18:17 WBC 10.19 RBC 4.93 Hgb 14.3 Hct 42.1 MCV 85.4 MCH 29.0 MCHC 34.0 RDW Std Deviation 13.0 Plt Count 369 MPV 9.0 Immature Gran % (Auto) 0.3 Neut % (Auto) 54.1 Lymph % (Auto) 36.2 [place] % (Auto) 8.4 Eos % (Auto) 0.8 Baso % (Auto) 0.2 Immature Gran # (Auto) 0.03 Neut # (Auto) 5.51 Lymph # (Auto) 3.69 H [place] # (Auto) 0.86 H Eos # (Auto) 0.08 Baso # (Auto) 0.02 PT INR PTT (Actin FS) D-Dimer, Quantitative Specimen Type Sample Site pH pCO2 pO2 HCO3 Base Excess Oxyhemoglobin ABG O2 Sat (Calculated) ABG O2 Saturation ABG Carboxyhemoglobin ABG Methemoglobin Cedric Test A-a O2 Difference Total Hemoglobin Lactate Blood Gas Modality FiO2 % Sodium 143 Potassium 3.8 Chloride 101 Carbon Dioxide 30 Anion Gap 12 BUN 15 Creatinine 0.7 Estimated GFR/1.73 m2 > 60 BUN/Creatinine Ratio 21 Glucose 119 H Calculated Osmolality 287 Calcium 9.4 Total Bilirubin 0.30 AST 13 ALT 16 Alkaline Phosphatase 64 Creatine Kinase 82 Troponin T High Sens Hqv-N-Raakddndqms Pept 145 Total Protein 7.5 Albumin 4.9 Globulin 3.0 Albumin/Globulin Ratio 2.0 Plasma/Serum Ethyl Alc 04/24/19 04/24/19 04/24/19 18:17 18:17 18:17 WBC RBC Hgb Hct MCV MCH MCHC RDW Std Deviation Plt Count MPV Immature Gran % (Auto) Neut % (Auto) Lymph % (Auto) [place] % (Auto) Eos % (Auto) Baso % (Auto) Immature Gran # (Auto) Neut # (Auto) Lymph # (Auto) [place] # (Auto) Eos # (Auto) Baso # (Auto) PT 13.4 INR 0.97 PTT (Actin FS) 25.6 D-Dimer, Quantitative < 0.27 Specimen Type Sample Site pH pCO2 pO2 HCO3 Base Excess Oxyhemoglobin ABG O2 Sat (Calculated) ABG O2 Saturation ABG Carboxyhemoglobin ABG Methemoglobin Cedric Test A-a O2 Difference Total Hemoglobin Lactate Blood Gas Modality FiO2 % Sodium Potassium Chloride Carbon Dioxide Anion Gap BUN Creatinine Estimated GFR/1.73 m2 BUN/Creatinine Ratio Glucose Calculated Osmolality Calcium Total Bilirubin AST ALT Alkaline Phosphatase Creatine Kinase Troponin T High Sens < 6 Lov-F-Cmgghsqvprp Pept Total Protein Albumin Globulin Albumin/Globulin Ratio Plasma/Serum Ethyl Alc 04/24/19 04/24/19 04/24/19 21:19 21:19 22:04 WBC RBC Hgb Hct MCV MCH MCHC RDW Std Deviation Plt Count MPV Immature Gran % (Auto) Neut % (Auto) Lymph % (Auto) [place] % (Auto) Eos % (Auto) Baso % (Auto) Immature Gran # (Auto) Neut # (Auto) Lymph # (Auto) [place] # (Auto) Eos # (Auto) Baso # (Auto) PT INR PTT (Actin FS) D-Dimer, Quantitative Specimen Type ARTERIAL Sample Site R RADIAL pH 7.46 H pCO2 45 pO2 181 H HCO3 30.3 H Base Excess 7.1 H Oxyhemoglobin 91.8 L ABG O2 Sat (Calculated) 18.6 ABG O2 Saturation 98.2 ABG Carboxyhemoglobin 5.70 H* ABG Methemoglobin 0.8 Cedric Test YES A-a O2 Difference -88.0 Total Hemoglobin 14.1 Lactate 0.70 Blood Gas Modality ROOM AIR FiO2 % 21.0 Sodium Potassium Chloride Carbon Dioxide Anion Gap BUN Creatinine Estimated GFR/1.73 m2 BUN/Creatinine Ratio Glucose Calculated Osmolality Calcium Total Bilirubin AST ALT Alkaline Phosphatase Creatine Kinase Troponin T High Sens < 6 Nan-W-Kikpbknxhfa Pept Total Protein Albumin Globulin Albumin/Globulin Ratio Plasma/Serum Ethyl Alc Orders Category Date Time Status Cardiac Monitoring DIRECTED Care 04/24/19 18:12 Active Oxygen Therapy- ED Nursing DIRECTED Care 04/24/19 18:12 Active Saline Loc NOW Care 04/24/19 18:12 Active Psych Screening Routine Cons 04/24/19 23:28 Ordered CHEST-2 VIEWS [RAD] Stat Exams 04/24/19 18:12 Completed ABG [RESP] Routine Lab 04/24/19 22:04 Completed ALCOHOL BLOOD Stat Lab 04/24/19 21:19 Completed CBC WITH ELECTRONIC DIFF [HEME] Stat Lab 04/24/19 18:17 Completed CK PROFILE [SP CHEM] Stat Lab 04/24/19 18:17 Completed COMPREHENSIVE METABOLIC PANEL [CHEM] Stat Lab 04/24/19 18:17 Completed D-DIMER [COAG] Stat Lab 04/24/19 18:17 Completed PRO B-NATRIURETIC PEPTIDE Stat Lab 04/24/19 18:17 Completed PROTIME WITH INR [COAG] Stat Lab 04/24/19 18:17 Completed PTT [COAG] Stat Lab 04/24/19 18:17 Completed TROPONIN T HIGH SENSITIVITY Stat Lab 04/24/19 18:17 Completed TROPONIN T HIGH SENSITIVITY Stat Lab 04/24/19 21:19 [address] DRUG SCREEN PL Stat Lab 04/24/19 23:25 Received Albuterol 2.5MG/Ipratrop 0.5MG [Duoneb (A & A)] Med 04/24/19 21:54 Discontinued 3 ml INH NOW ONE Methylprednisolone Sod Succ [Solu-Medrol] Med 04/24/19 21:54 Discontinued 80 mg IV NOW ONE Aerosol Treatments Routine Oth 04/24/19 21:55 Completed Aerosol Treatments Stat Oth 04/24/19 21:55 Completed CP/SOB/Palp >45 yrs of Age Stat Oth 04/24/19 18:12 Ordered EKG [EKG] Stat Ther 04/24/19 18:12 Ordered Result Diagrams: 04/24/19 18:17 04/24/19 18:17 - EKG 1 Time of EKG reading by physician:: 18:12 EKG Read and Signed by:: Cj Michele EKG Interpretation (*Must complete 3 of following elements*): Normal Rate: 75 Rhythm: NSR QRS: normal CO Interval: normal ST Wave: normal Comments: Normal ECG - XRAY 1 XRAY Study: Chest Impression: Normal ( EXAM: CHEST-2 VIEWS HISTORY: CP TECHNIQUE: Two views COMPARISON: 03/03/2019 FINDINGS: The lungs are well expanded. The heart is not enlarged. The vessels are not distended. There are no infiltrates. No pleural effusions. Scattered granuloma. IMPRESSION: No acute abnormality. Electronically signed by Cristian Olmos 04/24/2019 6:52 PM 04/24/191851 Interpreting Physician: Cristian Olmos MD Dictated Date/Time: 04/24/191851 cc: Cj Michele MD; Racheal Davis) - CONSULTS/PCP/HOSPITALIST Notification #1 *Consult/PCP/Hospitalist*: Dr. Arechiga Time Discussed: 23:40 Consult Disposition: Admit (Pt ok without 1:1 obersvations,) Departure - Departure Date of Disposition Decision: 04/24/19 Time of Disposition Decision: 23:43 DIAGNOSIS: COPD exacerbation, Chest pain Disposition: ADMITTED INPATIENT 09 Certified Medical Emergency: Emergent Condition: Stable Referrals and Follow-Ups: Racheal Davis CRNP [Primary Care Provider] - Discharge Education: Steps to Quit Smoking, [id number], Tobacco Use Disorder - Critical Care Note This patient required my direct & personal management of CC.: No Attestation - Physician/ PALMER Attestation Patient care was provided by Advanced Practice Provider:: Yes Advanced Practice Provider:: Nilam Holbrook Advanced Practice Provider documentation review:: The Mid-level provider documentation, treatment plan and medical decision making was reviewed by the physician who agrees with all treatment and medical decision making by the MLP. The physician spent face to face time with patient:: No Advanced Practice Provider documentation review:: Supervising physician onsite and consulted in the evaluation and care of this patient. The physician did not have a face to face encounter with the patient. This chart was documented by the indicated scribe, (Alberto Ulrich Scribe) and accurately reflects the services I performed and decisions made by me, Nilam Holbrook CRNP, as attested by the provider's signature.
[2019-04-24 23:53] LABS: UR AMPHETAMINES QUAL NONE DETECTED (NONE DETECT); UR BARBITUATES QUAL NONE DETECTED (NONE DETECT); UR BENZODIAZEPIN QUAL PRESUMPTIVE POSITIVE (NONE DETECT); UR CANNABINOIDS QUAL PRESUMPTIVE POSITIVE (NONE DETECT); UR COCAINE QUAL NONE DETECTED (NONE DETECT); UR METHADONE QUAL NONE DETECTED (NONE DETECT); UR METHAMPHETAMINE QUAL NONE DETECTED (NONE DETECT); UR OPIATES QUAL NONE DETECTED (NONE DETECT); UR OXYCODONE QUAL NONE DETECTED (NONE DETECT); UR PCP QUAL NONE DETECTED (NONE DETECT); UR PROPOXYPHENE QUAL NONE DETECTED (NONE DETECT); UR TCA QUAL NONE DETECTED (NONE DETECT)
[2019-04-25] MEDS ORDERED: ZITHROMAX PO ONE (00:02)
--- NOTE | 2019-04-25 01:42 | EKG Report ---
Test Performed on : 04/24/2019 6:12:10 PM Test Reason : CP Blood Pressure : / mmHG Vent. Rate : 075 BPM Atrial Rate : 075 BPM P-R Int : 148 ms QRS Dur : 094 ms QT Int : 414 ms P-R-T Axes : 064 066 054 degrees QTc Int : 462 ms Normal sinus rhythm. Normal ECG When compared with ECG of 25-FEB-2019 08:49, (Unconfirmed) T wave inversion no longer evident in Inferior leads Nonspecific T wave abnormality no longer evident in Lateral leads QT has lengthened Unconfirmed Result
[2019-04-25] MEDS ORDERED: APRESOLINE IV ONE (04:33)
[2019-04-25] MEDS: SOLU-MEDROL IV SCH ×3 (07:48→21:30)
[2019-04-25] MEDS ORDERED: ZOFRAN IV PRN (07:51)
[2019-04-25] MEDS: DUONEB (A & A) INH SCH ×5 (08:45→22:34)
[2019-04-25] MEDS: VRAYLAR PO SCH (08:59)
[2019-04-25] MEDS: PROZAC PO SCH (08:59)
[2019-04-25] MEDS ORDERED: VITAMIN D PO SCH (09:00)
[2019-04-25] MEDS: ROBAXIN PO SCH ×3 (09:03→17:25)
[2019-04-25] MEDS: PRINIVIL PO SCH (09:03)
[2019-04-25] MEDS: LEVAQUIN 500 MG/D5W 500 MG/100 ML IVPB IV SCH (09:04)
[2019-04-25] MEDS: PRILOSEC PO SCH (09:08)
[2019-04-25] MEDS ORDERED: NICOTINE GUM BUCCAL PRN (09:31)
--- NOTE | 2019-04-25 10:19 | HISTORY AND PHYSICAL ---
PRIMARY CARE PROVIDER: Dr. Kyle. CHIEF COMPLAINT: Chest pain, shortness of breath. HISTORY OF PRESENT ILLNESS: Ms. Ayla Cha is a 53-year-old, female with a medical history of paranoid schizophrenia, borderline personality disorder, depression, GERD, COPD without home oxygen, hypertension, who also had a recent overdose of trazodone back in February in attempt to commit suicide. Currently, is refusing all actions or attempts of suicide. She is not suicidal at this time. She is also not hearing voices at this time. Around 4 p.m. yesterday, she developed chest pain. It was midsternal, but it radiated down to the right arm and right ribs. She had shortness of breath with it, and started coughing up brown phlegm. A little lightheaded and sweating, but denied nausea. She also states that here recently, she has been waking up at night with reflux. Denies any fever or chills. No other complaints. She did state that she had a recent fall on her right knee and bruised it up. It was a mechanical fall. She had tripped over something. Workup here reveals a little bit of a COPD exacerbation. PAST MEDICAL HISTORY: 1. Hypertension. 2. COPD. No home O2. 3. GERD. 4. Hiatal hernia. 5. Gout. 6. Uterine cancer with hysterectomy. 7. Gout. 8. Paranoid schizophrenia. 9. Borderline personality disorder. 10. Depression. 11. Suicide attempt with overdose of trazodone in 02/2019 with an admission to [facility]. PAST SURGICAL HISTORY: 1. Esophageal dilatation. 2. section. 3. Hysterectomy. 4. Bilateral tubal ligation. 5. Cholecystectomy. 6. Bilateral carpal tunnel repair. 7. Benign tumor removed from the upper back. 8. Mouth wired shut secondary to jaw fracture when she was 18. SOCIAL HISTORY: She rolls her own cigarettes at home. She claims it is to the equivalent of 4 or 5 packs of cigarettes a day. She also dips 1 can of smokeless tobacco a day. Denies alcohol. She smokes marijuana about once a week, but it is primarily only when she hears voices. She currently lives with her sister, and does not have a significant other, and is not working. FAMILY HISTORY: Mother had diabetes, Alzheimer's, and hypertension. Father had his first heart attack in his 60s. Also had diabetes. Grandmother with stroke. Grandfather with heart attack. Had an aunt and uncle who both committed suicide. A sister, a nephew, a niece, and a brother with mental illness. ALLERGIES: Aspirin, adhesive tape, latex, penicillin, Zoloft, bee venom, tomatoes, Haldol, and tramadol. HOME MEDICATIONS: 1. Omeprazole 40 mg p.o. daily. 2. Lisinopril 20 mg p.o. daily. 3. Minipress 1 mg p.o. nightly. 4. Prozac 40 mg p.o. daily. 5. Robaxin 750 mg p.o. t.i.d. 6. Vitamin D2, 50,000 units p.o. daily. 7. Vraylar 4.5 mg p.o. daily. REVIEW OF SYSTEMS: A 14-point review of systems is complete, and all are negative, except for those mentioned in the above HPI. PHYSICAL EXAMINATION: VITAL SIGNS: Temperature 98.4 degrees, heart rate 64, respiratory rate 17, blood pressure 161/98, O2 saturation 95% on 2 L nasal cannula. GENERAL: Ms. Ayla Cha is a 53-year-old, female. She is in no acute distress. She is able to answer questions appropriately. HEENT: Atraumatic, normocephalic. Pupils equal, round, reactive to light. Extraocular movements intact. Mucous membranes are dry. NECK: Trachea midline. CARDIOVASCULAR: S1, S2. Regular rate and rhythm. No rubs, gallops, murmur. No lower extremity edema. There are +2 dorsalis and radial pulses. Negative JVD or carotid bruits. PULMONARY: Clear to auscultation. Bilateral breath sounds. No accessory muscle use or work of breathing noted. GI: Soft, nontender, nondistended. Positive bowel sounds x4. EXTREMITIES: Moves all extremities equally. Full range of motion. NEUROLOGIC: A and O x3. Follows commands. Sensory is intact. SKIN: Warm, dry, intact, except for she has a right knee that is bruised up. LABORATORY DATA: White blood cells 10,000, hemoglobin 14, hematocrit 42, platelet count 369,000. INR 0.97, PTT is 25.6. D-dimer is less than 0.27. PH 7.46, pCO2 of 45, PO2 of 181, bicarb 30, base excess 7.1, saturation 91.8%, carboxyhemoglobin 5.7, lactate 0.7 (this is on room air). Sodium 143, potassium 3.8, BUN 15, creatinine 0.7, glucose 119, calcium 9.4. Bilirubin 0.30, AST 13, ALT 16. CK 82. Troponin less than 6. ProBNP 145. Albumin 4.9. Urine drug screen is positive for benzodiazepines, positive for cannabinoids. Alcohol is negative. IMAGING: Chest x-ray: No acute findings. EKG: Normal sinus rhythm, rate 75, QTc 462. ASSESSMENT AND PLAN: 1. Chronic obstructive pulmonary disease exacerbation. She has been started on antibiotic, steroids, nebulizers, and oxygen. 2. Gastroesophageal reflux disease with recent symptoms. Her Prilosec has been resumed. Apparently, she has been waking up at night with frequent spells of reflux. She does have a history of hiatal hernia as well. These could be things that could exacerbate her chronic obstructive pulmonary disease if she is refluxing in her sleep. 3. Hypertension. Continue home medications. 4. Gout, stable. 5. Paranoid schizophrenia, borderline personality disorder, and depression. All home medications have been continued for this. She denies any symptoms of auditory hallucinations. 6. Significant tobacco abuse. She rolls her own cigarettes. She also dips daily. She has an adhesive allergy, so cannot do a nicotine patch, but nicotine gum has been ordered for her. 7. Marijuana use. She states it is only once a week, mostly whenever she hears voices. 8. Recent suicide attempt with overdose on trazodone back in February. She denies any suicidal ideations at this time. 9. Deep venous thrombosis prophylaxis. Sequential compression devices. Dictated by MARTIR Quiroga for Bhupinder Kyle MD cc: MARTIR Quiroga MD
[2019-04-25] MEDS: NICODERM PATCH TD SCH (15:42)
[2019-04-25] MEDS: PULMICORT INH SCH (19:55)
[2019-04-25] MEDS: MINIPRESS PO SCH (20:53)
--- NOTE | 2019-04-25 21:56 | HISTORY AND PHYSICAL ---
ADDENDUM: Patient presented to the hospital with chest pain and frequent falls. Blood pressure is elevated 179/92. She does have a history of diabetes, bipolar, depression and congestive heart failure. We are going to admit her to the hospital, rule out MD and will follow. Hopefully symptoms will improve and she can be discharged home over the next 1 or 2 days. cc: Bhupinder Kyle MD
[2019-04-26] MEDS: SOLU-MEDROL IV SCH ×3 (05:29→21:29)
[2019-04-26] MEDS: PRILOSEC PO SCH ×2 (05:30→07:35)
[2019-04-26 06:39] LABS: AGAP 13; ALBUMIN 4.1 g/dL (3.5-5.0); ALKALINE PHOSPHATASE 55 U/L (32-104); BUN 18 mg/dL (8-22); CALCIUM 9.5 mg/dL (8.8-10.2); CHLORIDE 102 mmol/L (98-107); COSMO 288; CREATININE 0.7 mg/dL (0.5-0.9); ESTIMATED GFR > 60; GLUCOSE 181 mg/dL (70-104); GOT 11 U/L (10-30); GPT 13 U/L (10-36); POTASSIUM 3.9 mmol/L (3.5-5.1); SODIUM 141 mmol/L (136-145); TCO2 26 mmol/L (25-35); TOTAL PROTEIN 6.7 g/dL (6.3-8.3)
[2019-04-26 06:43] LABS: FREE T4 0.93 ng/dL (0.93-1.70); TSH 0.22 uIUmL (0.27-4.20)
[2019-04-26 07:00] LABS: BASO# 0.01 X1000 (0.0-0.2); BASO% 0.1 % (0.0-0.8); HEMATOCRIT 41.3 % (37.0-47.0); HEMOGLOBIN 13.8 g/dL (12.0-16.0); IMM GRAN% 0.5 % (0.0-0.5); LYMPH# 1.36 X1000 (1.2-3.4); LYMPH% 7.2 % (20.5-51.1); MCH 28.8 PG (27-31); MCHC 33.4 g/dL (33-37); MCV 86.2 FL (81-99); MONO# 1.12 X1000 (0.11-0.59); MPV 9.5 FL (7.4-10.4); NEUT# 16.21 X1000 (1.4-6.5); NEUT% 86.2 % (42.2-75.2); PLT 367 X1000 (130-400); RBC 4.79 XMIL (4.2-5.4); RDW 13.2 % (11.5-14.5)
[2019-04-26 07:06] LABS: HEMOGLOBIN A1C 5.7 % (4.8-6.0)
[2019-04-26 07:40] LABS: EOS 1 % (1-10); LYMPHS 5 % (21-51); MONO 4 % (1-9); SEGS 90 % (42-75)
[2019-04-26] MEDS: DUONEB (A & A) INH SCH ×5 (08:11→23:03)
[2019-04-26] MEDS: PULMICORT INH SCH ×2 (08:11→20:02)
[2019-04-26] MEDS: LEVAQUIN 500 MG/D5W 500 MG/100 ML IVPB IV SCH (09:11)
[2019-04-26] MEDS: PROZAC PO SCH (09:11)
[2019-04-26] MEDS: NICODERM PATCH TD SCH (09:11)
[2019-04-26] MEDS: PRINIVIL PO SCH (09:11)
[2019-04-26] MEDS: ROBAXIN PO SCH ×3 (09:11→16:37)
[2019-04-26] MEDS: VRAYLAR PO SCH (09:51)
[2019-04-26] MEDS ORDERED: TYLENOL PO PRN (15:38)
[2019-04-26] MEDS: MINIPRESS PO SCH (21:29)
[2019-04-27 05:28] VITALS: BP 122/60
--- NOTE | 2019-04-27 06:34 | PROGRESS NOTE ---
DATE: 04/26/2019 SUBJECTIVE: The patient notes that she is breathing a little bit easier, still having some cough, still having some shortness of breath and occasional chest pain. OBJECTIVE: Vitals: Temperature 97.5, pulse 55, respiratory rate 18, BP 122/56. General: The patient is currently in no respiratory distress. HEENT: Normocephalic. Neck: Supple. Cardiovascular: Regular rate. Chest: Clear, currently no wheezing. Abdomen: Soft. Nondistended. Extremities: Moves all extremities. ASSESSMENT: 1. Chronic obstructive pulmonary disease with exacerbation. She has just received a breathing treatment. Her breathing is improved. She currently has no wheezing. 2. Reflux. 3. Chest pain. 4. Hypertension. 5. Gout. 6. Paranoid schizophrenia and borderline personality disorder. PLAN: We are going to continue the patient in the hospital. Continue to wean her steroids. Continue to discuss the importance of stopping smoking, and we will follow. Hopefully home over [*] cc: Bhupinder Kyle MD
[2019-04-27] MEDS: PRILOSEC PO SCH (06:42)
[2019-04-27] MEDS: SOLU-MEDROL IV SCH ×2 (06:42→14:05)
[2019-04-27 07:12] LABS: BASO# 0.01 X1000 (0.0-0.2); BASO% 0.1 % (0.0-0.8); HEMATOCRIT 42.8 % (37.0-47.0); IMM GRAN# 0.11 X1000 (0.0-0.04); IMM GRAN% 0.6 % (0.0-0.5); LYMPH# 2.21 X1000 (1.2-3.4); MCH 28.5 PG (27-31); MCHC 32.7 g/dL (33-37); MONO# 1.24 X1000 (0.11-0.59); MONO% 7.3 % (1.7-9.3); MPV 9.1 FL (7.4-10.4); NEUT# 13.49 X1000 (1.4-6.5); PLT 371 X1000 (130-400); RBC 4.92 XMIL (4.2-5.4); RDW 13.3 % (11.5-14.5); WBC 17.06 X1000 (4.8-10.8)
[2019-04-27] MEDS: PULMICORT INH SCH (07:18)
[2019-04-27] MEDS: DUONEB (A & A) INH SCH ×2 (07:18→11:29)
[2019-04-27 07:22] LABS: AGAP 12; ALBUMIN 4.1 g/dL (3.5-5.0); ALKALINE PHOSPHATASE 51 U/L (32-104); BUN 23 mg/dL (8-22); CALCIUM 9.6 mg/dL (8.8-10.2); CHLORIDE 100 mmol/L (98-107); COSMO 284; CREATININE 0.8 mg/dL (0.5-0.9); ESTIMATED GFR > 60; GLUCOSE 152 mg/dL (70-104); GOT 26 U/L (10-30); GPT 49 U/L (10-36); POTASSIUM 4.7 mmol/L (3.5-5.1); SODIUM 139 mmol/L (136-145); TCO2 27 mmol/L (25-35); TOTAL PROTEIN 6.5 g/dL (6.3-8.3)
[2019-04-27] MEDS ORDERED: LEVAQUIN PO SCH (09:00)
[2019-04-27] MEDS ORDERED: VRAYLAR PO SCH (09:00)
[2019-04-27] MEDS: PRINIVIL PO SCH (09:12)
[2019-04-27] MEDS: PROZAC PO SCH (09:13)
[2019-04-27] MEDS: ROBAXIN PO SCH ×2 (09:13→14:04)
[2019-04-27] MEDS: NICODERM PATCH TD SCH (09:13)
--- NOTE | 2019-04-28 12:43 | DISCHARGE SUMMARY ---
ADMISSION DATE: 04/24/2019 DISCHARGE DATE: 04/27/2019 DISCHARGE DIAGNOSES: 1. Chest pain , resolved. 2. Chronic obstructive pulmonary disease with mild exacerbation, improved. 3. Chronic reflux. 4. Hypertension. 5. Gout. 6. Paranoid schizophrenia. CONSULTATIONS: None. PROCEDURES: None. BRIEF HOSPITAL COURSE: The patient is a 53-year-old female who presented to the hospital, treated in usual fashion, placed on antibiotics, breathing treatments, steroids, and oxygen. Thankfully, on discharge, she is awake, alert. Notes that her symptoms have improved. Overall, she is feeling better. DISPOSITION: The patient will be discharged home. She will follow up outpatient with treatment facility of choice. Discussed with her that she needs to continue to avoid smoking. She is currently using a patch, will continue steroids, antibiotics, breathing treatments. No changes were made on her chronic diet and medications. cc: Bhupinder Kyle MD
== END 2019-04-27 15:19 | disposition home or self-care (01) | DRG 191 ==
LOC: P.ED 18:02 → SUATTDRO 04-25 01:42 → P.EDIPHOLD 04-25 01:42
PROVIDERS: ATTEND Family Medicine